=== PATIENT | female | born 1955 | race Caucasian/White ===

== ENCOUNTER → 2017-05-03 | Day surgery (SDC) | payer BC ==
--- NOTE | 2017-05-04 12:54 | PATH ---
Cytology Non-Gynecological Report Patient Name: ALETHEA LOVELL [facility]. Rec. #: [id number] /Age/Gender: 1955 (Age: 62) / F Account: [id number] [facility] Taken: 05/03/2017 Received: 05/03/2017 Reported: 05/04/2017 Physicians: Jose F Meyers M.D. Specimen(s) Received RIGHT THYROID FNA Clinical History Thyroid nodule, 2.2 x 1.7 x 1.6 cm Final Diagnosis THYROID, RIGHT, FINE NEEDLE ASPIRATION: SATISFACTORY FOR EVALUATION. [place] CLASS II: BENIGN. CYTOLOGIC FINDINGS ARE CONSISTENT WITH A BENIGN FOLLICULAR NODULE. BENIGN FOLLICULAR CELLS, RARE MACROPHAGES, AND COLLOID PRESENT. Electronically Signed Deborah Jose M.D. Gross Description Received are eight direct smears, four of which are air-dried and Diff-Quik stained, and four of which are alcohol fixed and Pap stained. Also received is 20 ml of bloody formalin from which one cellblock is prepared.
== END | disposition home or self-care (01) ==
LOC: JRADIR 08:58
PROVIDERS: ATTEND Internal Medicine
PROC: 0G9H3ZX Drainage of Right Thyroid Gland Lobe, Percutaneous Approach, Diagnostic (ICD-10-PCS; principal; 2017-05-03)
DX: E04.1 Nontoxic single thyroid nodule (principal)
CPT/HCPCS: 76942; 88173; 88305-TC